=== PATIENT | male | born 1960 | race Asian ===

== ENCOUNTER 2021-06-28 04:45 | Emergency (ER) | payer BC, OTHER ==
[~2021-06-28] VITALS: Ht 170.2 cm; Wt 72.6 kg
[2021-06-28 04:50] VITALS: BP 146/90
[2021-06-28] MEDS ORDERED: DICYCLOMINE HCL LIQUID 20 MG, ALUMINUM HYD/MAG/SIMETHICONE 30 ML, LIDOCAINE VISCOUS 2% ... PO ONE ×3 (05:20)
[2021-06-28] MEDS ORDERED: ALUMINUM HYD/MAG/SIMETHICONE 30 ML UDC ONE (05:24)
[2021-06-28] MEDS ORDERED: DICYCLOMINE HCL LIQUID 10 MG/5 ML UDC ONE (05:25)
[2021-06-28] MEDS ORDERED: OMEP40EC24 PO (05:51)
[2021-06-28 06:00] VITALS: BP 146/90
== END 2021-06-28 06:00 | disposition home or self-care (01) ==
LOC: MED 04:45
DX: R10.13 Epigastric pain (principal); Z88.0 Allergy status to penicillin
CPT/HCPCS: 81002; 99282

== ENCOUNTER 2021-07-12 21:27 | Emergency (ER) | payer BC ==
[~2021-07-12] VITALS: Ht 170.2 cm; Wt 71.7 kg
[~2021-07-12 21:27] MED LIST: OMEP40EC24 PO
[2021-07-12 21:37] VITALS: BP 152/75
[2021-07-12] MEDS: KETOROLAC 60 MG/2 ML VIAL IM ONE (23:11)
[2021-07-12] MEDS ORDERED: IBUP-2218 PO (23:13)
[2021-07-12 23:39] VITALS: BP 152/75
== END 2021-07-12 23:39 | disposition home or self-care (01) ==
LOC: MED 21:27
DX: G89.29 Other chronic pain (principal); M54.59 Other low back pain; Z88.0 Allergy status to penicillin
CPT/HCPCS: 96372; 99283; J1885